=== PATIENT | female | born 1965 | race Caucasian/White ===

== ENCOUNTER 2019-06-24 15:38 | Inpatient (IN) | payer OTHER ==
[2019-06-24] MEDS: predniSONE 20 MG TAB PO (15:57)
[2019-06-24] MEDS: IPRATROPIUM (NEB) 0.5 MG/2.5 ML AMP INH (16:22)
[2019-06-24] MEDS: ALBUTEROL 0.083% (NEB) 2.5 MG/3 ML AMP INH (16:22)
[2019-06-24] MEDS: SODIUM CHLORIDE 0.9% 1L BAG IV* ×2 (18:05)
[2019-06-24] MEDS: CEFEPIME 2GM/50 ML (PMX) 50 ML IVPB (18:17)
[2019-06-24] MEDS ORDERED: ACETAMINOPHEN 325 MG TAB PO (19:00)
[2019-06-24] MEDS ORDERED: ONDANSETRON 4 MG INJ IV ×2 (19:00)
[2019-06-24] MEDS ORDERED: NACL 0.9% 3 ML SYG IV (19:00)
[2019-06-24] MEDS: VANCOMYCIN 1 GM (PMX) 250 ML IVPB (19:06)
[2019-06-24] MEDS: SOD CHLORIDE 0.9% 1,000 ML IV (19:06)
[2019-06-24] MEDS ORDERED: CEFEPIME 1GM/50 ML (PMX) 50 ML IVPB (21:00)
[2019-06-24] MEDS: FAMOTIDINE 20 MG TAB PO (23:02)
[2019-06-25] MEDS ORDERED: PENDING SANTYL ORDER FOR WOUND CARE XX (01:00)
[2019-06-25] MEDS: SOD CHLORIDE 0.9% 1,000 ML IV (03:43)
[2019-06-25] MEDS: CEFEPIME 1GM/50 ML (PMX) 50 ML IVPB ×2 (06:09→20:10)
[2019-06-25] MEDS: FAMOTIDINE 20 MG TAB PO ×2 (09:00→20:10)
[2019-06-25] MEDS: ALBUTEROL 0.083% (NEB) 2.5 MG/3 ML AMP HHN (09:08)
[2019-06-25] MEDS: METHYLPREDNISOLONE 125 MG INJ IV (09:32)
[2019-06-25] MEDS: ENOXAPARIN 30 MG/0.3 ML SYG SC (09:33)
[2019-06-25] MEDS: FUROSEMIDE 40 MG INJ IV (10:49)
[2019-06-25] MEDS: SOD CHLORIDE 0.9% 250 ML IV* (14:10)
[2019-06-26] MEDS: ALBUTEROL 0.083% (NEB) 2.5 MG/3 ML AMP HHN ×2 (00:26→08:45)
[2019-06-26] MEDS: CEFEPIME 1GM/50 ML (PMX) 50 ML IVPB ×2 (08:40→21:14)
[2019-06-26] MEDS: FAMOTIDINE 20 MG TAB PO ×2 (08:40→21:14)
[2019-06-26] MEDS: METHYLPREDNISOLONE 125 MG INJ IV (08:40)
[2019-06-26] MEDS: ENOXAPARIN 30 MG/0.3 ML SYG SC (09:21)
[2019-06-26] MEDS ORDERED: VANCOMYCIN IV PER PHARMACY XX (18:30)
[2019-06-26] MEDS: ALBUTEROL/IPRATROPIUM (NEB) 3 ML AMP HHN (20:13)
[2019-06-26] MEDS: VANCOMYCIN 1.5 GM/NS 250 ML 250 ML IVPB (20:20)
[2019-06-26] MEDS: SILVER SULFADIAZINE 1% 25 GM CR TOP (22:43)
[2019-06-26] MEDS: COLLAGENASE 5 GM (UD JAR) TOP (22:43)
[2019-06-27] MEDS: GENTAMICIN 60 MG in SOD CHLORIDE 0.9% 50 ML IVPB ×2 (02:15→22:29)
[2019-06-27] MEDS: COLLAGENASE 5 GM (UD JAR) TOP (09:08)
[2019-06-27] MEDS: ENOXAPARIN 30 MG/0.3 ML SYG SC (09:08)
[2019-06-27] MEDS: SILVER SULFADIAZINE 1% 25 GM CR TOP (09:09)
[2019-06-27] MEDS: ALBUTEROL/IPRATROPIUM (NEB) 3 ML AMP HHN ×3 (10:00→20:08)
[2019-06-27] MEDS ORDERED: FUROSEMIDE 20 MG INJ (12:00)
[2019-06-27] MEDS ORDERED: GENTAMICIN IV PER PHARMACY XX (16:00)
[2019-06-27] MEDS ORDERED: FUROSEMIDE 40 MG INJ IM (16:30)
[2019-06-27] MEDS: ALBUTEROL 0.083% (NEB) 2.5 MG/3 ML AMP HHN (16:43)
[2019-06-27] MEDS: METHYLPREDNISOLONE 125 MG INJ IV (16:44)
[2019-06-27] MEDS: CEFEPIME 1GM/50 ML (PMX) 50 ML IVPB ×2 (16:56→22:27)
[2019-06-27] MEDS: FUROSEMIDE 40 MG INJ IV (17:00)
[2019-06-27] MEDS: PEG/ELECTROLYTES 4L BTL PO ×3 (17:00→22:28)
[2019-06-27] MEDS: VANCOMYCIN 750 MG (PMX) 250 ML IVPB (17:36)
[2019-06-27] MEDS: PANTOPRAZOLE 40 MG INJ IV (17:38)
[2019-06-27] MEDS: BISACODYL (EC) 5 MG TAB PO ×2 (17:38→22:27)
[2019-06-27] MEDS ORDERED: METHADONE (1 MG/ML 5 ML PO UD SYG) PO (18:30)
[2019-06-27] MEDS: NICOTINE (21 MG/24 HR) PATCH TRANSDERM (19:21)
[2019-06-27] MEDS: morphine 2 MG INJ IV (19:21)
[2019-06-27] MEDS ORDERED: VANCOMYCIN 1 GM 250 ML IVPB (20:00)
[2019-06-28] MEDS: GENTAMICIN 60 MG in SOD CHLORIDE 0.9% 50 ML IVPB ×4 (02:15→15:37)
[2019-06-28] MEDS: VANCOMYCIN 750 MG (PMX) 250 ML IVPB ×2 (04:16→17:22)
[2019-06-28] MEDS: PANTOPRAZOLE 40 MG INJ IV ×2 (06:03→17:20)
[2019-06-28] MEDS: ENOXAPARIN 30 MG/0.3 ML SYG SC (09:00)
[2019-06-28] MEDS: METHYLPREDNISOLONE 125 MG INJ IV (10:12)
[2019-06-28] MEDS: morphine 2 MG INJ IV (10:12)
[2019-06-28] MEDS: ALBUTEROL/IPRATROPIUM (NEB) 3 ML AMP HHN ×3 (10:12→20:00)
[2019-06-28] MEDS: SILVER SULFADIAZINE 1% 25 GM CR TOP (10:17)
[2019-06-28] MEDS: COLLAGENASE 5 GM (UD JAR) TOP (10:17)
[2019-06-28] MEDS: NICOTINE (21 MG/24 HR) PATCH TRANSDERM (10:17)
[2019-06-28] MEDS: CEFEPIME 1GM/50 ML (PMX) 50 ML IVPB ×2 (10:44→20:18)
[2019-06-28] MEDS ORDERED: ONDANSETRON 4 MG INJ IV (13:30)
[2019-06-28] MEDS: METHADONE 1 MG/ML (ORAL SOLN) PO (17:14)
[2019-06-28] MEDS: ALBUTEROL 0.083% (NEB) 2.5 MG/3 ML AMP HHN (19:29)
[2019-06-28] MEDS ORDERED: GENTAMICIN 60 MG in SOD CHLORIDE 0.9% 50 ML IVPB (22:00)
[2019-06-29] MEDS: GENTAMICIN 60 MG in SOD CHLORIDE 0.9% 50 ML IVPB ×2 (01:17→14:22)
[2019-06-29] MEDS: VANCOMYCIN 750 MG (PMX) 250 ML IVPB ×2 (03:22→15:56)
[2019-06-29] MEDS: ALBUTEROL 0.083% (NEB) 2.5 MG/3 ML AMP HHN ×2 (03:33→12:04)
[2019-06-29] MEDS ORDERED: FUROSEMIDE 20 MG INJ (03:52)
[2019-06-29] MEDS: FUROSEMIDE 20 MG INJ IV (04:09)
[2019-06-29] MEDS: PANTOPRAZOLE 40 MG INJ IV ×2 (06:05→17:57)
[2019-06-29] MEDS: ALBUTEROL/IPRATROPIUM (NEB) 3 ML AMP HHN ×3 (08:01→19:58)
[2019-06-29] MEDS: METHYLPREDNISOLONE 125 MG INJ IV (09:50)
[2019-06-29] MEDS: NICOTINE (21 MG/24 HR) PATCH TRANSDERM (09:50)
[2019-06-29] MEDS: CEFEPIME 1GM/50 ML (PMX) 50 ML IVPB ×2 (09:50→20:23)
[2019-06-29] MEDS: LISINOPRIL 5 MG TAB PO (09:51)
[2019-06-29] MEDS: METOPROLOL (XL) 25 MG TAB PO ×3 (09:53→20:23)
[2019-06-29] MEDS: COLLAGENASE 5 GM (UD JAR) TOP (09:53)
[2019-06-29] MEDS: ENOXAPARIN 30 MG/0.3 ML SYG SC (10:02)
[2019-06-29] MEDS: SILVER SULFADIAZINE 1% 25 GM CR TOP (11:22)
[2019-06-29] MEDS: METHADONE 1 MG/ML (ORAL SOLN) PO (11:23)
[2019-06-30] MEDS: GENTAMICIN 60 MG in SOD CHLORIDE 0.9% 50 ML IVPB (01:18)
[2019-06-30] MEDS: ALBUTEROL 0.083% (NEB) 2.5 MG/3 ML AMP HHN (01:25)
[2019-06-30] MEDS: VANCOMYCIN 750 MG (PMX) 250 ML IVPB (03:23)
[2019-06-30] MEDS: PANTOPRAZOLE 40 MG INJ IV ×2 (05:04→17:37)
[2019-06-30] MEDS: ALBUTEROL/IPRATROPIUM (NEB) 3 ML AMP HHN ×3 (07:46→19:49)
[2019-06-30] MEDS: SILVER SULFADIAZINE 1% 25 GM CR TOP (08:50)
[2019-06-30] MEDS: CEFEPIME 1GM/50 ML (PMX) 50 ML IVPB ×2 (08:50→21:54)
[2019-06-30] MEDS: NICOTINE (21 MG/24 HR) PATCH TRANSDERM (08:51)
[2019-06-30] MEDS: METHYLPREDNISOLONE 125 MG INJ IV (08:51)
[2019-06-30] MEDS: COLLAGENASE 5 GM (UD JAR) TOP (08:51)
[2019-06-30] MEDS: METOPROLOL (XL) 25 MG TAB PO ×2 (08:52→21:00)
[2019-06-30] MEDS: LISINOPRIL 5 MG TAB PO (08:53)
[2019-06-30] MEDS: ENOXAPARIN 30 MG/0.3 ML SYG SC (08:59)
[2019-06-30] MEDS: METHADONE 1 MG/ML (ORAL SOLN) PO (10:25)
[2019-06-30] MEDS: VANCOMYCIN 500 MG (PMX) 100 ML IVPB (17:37)
[2019-07-01] MEDS: PANTOPRAZOLE 40 MG INJ IV ×2 (06:00→17:17)
[2019-07-01] MEDS: VANCOMYCIN 500 MG (PMX) 100 ML IVPB ×2 (06:00→18:00)
[2019-07-01] MEDS: ALBUTEROL/IPRATROPIUM (NEB) 3 ML AMP HHN ×3 (08:30→20:38)
[2019-07-01] MEDS: CEFEPIME 1GM/50 ML (PMX) 50 ML IVPB ×2 (09:00→21:00)
[2019-07-01] MEDS: LISINOPRIL 5 MG TAB PO (09:00)
[2019-07-01] MEDS: METOPROLOL (XL) 25 MG TAB PO ×2 (09:00→21:00)
[2019-07-01] MEDS: METHYLPREDNISOLONE 125 MG INJ IV (09:00)
[2019-07-01] MEDS: COLLAGENASE 5 GM (UD JAR) TOP (09:21)
[2019-07-01] MEDS: SILVER SULFADIAZINE 1% 25 GM CR TOP (09:22)
[2019-07-01] MEDS: NICOTINE (21 MG/24 HR) PATCH TRANSDERM (09:37)
[2019-07-01] MEDS: ENOXAPARIN 30 MG/0.3 ML SYG SC (09:39)
[2019-07-01] MEDS ORDERED: NA POLYST SULFON 15 GM/60 ML BTL PO (11:00)
[2019-07-01] MEDS ORDERED: GENTAMICIN 60 MG in SOD CHLORIDE 0.9% 50 ML IVPB (12:00)
[2019-07-01] MEDS: METHADONE 1 MG/ML (ORAL SOLN) PO (13:25)
[2019-07-01] MEDS: NA POLYST SULFON 15 GM/60 ML BTL PO (13:55)
[2019-07-01] MEDS: ENOXAPARIN 80 MG/0.8 ML SYG SC (21:09)
[2019-07-02] MEDS: PANTOPRAZOLE 40 MG INJ IV ×2 (05:42→18:27)
[2019-07-02] MEDS: VANCOMYCIN 500 MG (PMX) 100 ML IVPB (05:42)
[2019-07-02] MEDS: CEFEPIME 1GM/50 ML (PMX) 50 ML IVPB (08:55)
[2019-07-02] MEDS: METOPROLOL (XL) 25 MG TAB PO ×2 (08:55→21:00)
[2019-07-02] MEDS: NICOTINE (21 MG/24 HR) PATCH TRANSDERM (08:55)
[2019-07-02] MEDS: COLLAGENASE 5 GM (UD JAR) TOP (08:55)
[2019-07-02] MEDS: METHYLPREDNISOLONE 125 MG INJ IV (08:56)
[2019-07-02] MEDS: LISINOPRIL 5 MG TAB PO (08:56)
[2019-07-02] MEDS: SILVER SULFADIAZINE 1% 25 GM CR TOP (08:57)
[2019-07-02] MEDS: ALBUTEROL/IPRATROPIUM (NEB) 3 ML AMP HHN ×3 (09:00→20:50)
[2019-07-02] MEDS: ENOXAPARIN 80 MG/0.8 ML SYG SC ×2 (09:15→20:31)
[2019-07-02] MEDS: LIDOCAINE 2% (SDV) 5 ML INJ (09:40)
[2019-07-02] MEDS: PROPOFOL 20 ML ×2 (09:40→09:41)
[2019-07-02] MEDS: METHADONE 10 MG TAB PO (09:40)
[2019-07-02] MEDS: FENTAnyl 50 MCG/ML VIAL (09:41)
[2019-07-02] MEDS: CEFTRIAXONE 1 GM/50 ML (PMX) 50 ML IVPB (18:27)
[2019-07-03] MEDS: PANTOPRAZOLE 40 MG INJ IV ×2 (05:02→18:20)
[2019-07-03] MEDS: ALBUTEROL/IPRATROPIUM (NEB) 3 ML AMP HHN ×3 (07:38→19:31)
[2019-07-03] MEDS: NICOTINE (21 MG/24 HR) PATCH TRANSDERM (08:38)
[2019-07-03] MEDS: COLLAGENASE 5 GM (UD JAR) TOP (08:39)
[2019-07-03] MEDS: METHYLPREDNISOLONE 125 MG INJ IV (08:39)
[2019-07-03] MEDS: METOPROLOL (XL) 25 MG TAB PO ×2 (08:40→20:35)
[2019-07-03] MEDS: METHADONE 10 MG TAB PO (08:40)
[2019-07-03] MEDS: SILVER SULFADIAZINE 1% 25 GM CR TOP (08:41)
[2019-07-03] MEDS: ENOXAPARIN 80 MG/0.8 ML SYG SC ×2 (08:51→20:18)
[2019-07-03] MEDS: CEFTRIAXONE 1 GM/50 ML (PMX) 50 ML IVPB (18:20)
[2019-07-04] MEDS: PANTOPRAZOLE 40 MG INJ IV ×2 (05:05→17:53)
[2019-07-04] MEDS: ALBUTEROL/IPRATROPIUM (NEB) 3 ML AMP HHN ×3 (08:31→21:08)
[2019-07-04] MEDS: METOPROLOL (XL) 25 MG TAB PO ×2 (09:00→21:17)
[2019-07-04] MEDS: METHYLPREDNISOLONE 125 MG INJ IV (09:29)
[2019-07-04] MEDS: METHADONE 10 MG TAB PO (09:29)
[2019-07-04] MEDS: NICOTINE (21 MG/24 HR) PATCH TRANSDERM (09:31)
[2019-07-04] MEDS: COLLAGENASE 5 GM (UD JAR) TOP (09:32)
[2019-07-04] MEDS: ENOXAPARIN 80 MG/0.8 ML SYG SC ×2 (11:03→21:39)
[2019-07-04] MEDS: SOD FERRIC GLUC COMPLX 125 MG in SOD CHLORIDE 0.9% 100 ML IVPB (13:21)
[2019-07-04] MEDS: CEFTRIAXONE 1 GM/50 ML (PMX) 50 ML IVPB (17:53)
[2019-07-04] MEDS: SILVER SULFADIAZINE 1% 25 GM CR TOP (17:54)
[2019-07-05] MEDS: 1/2 NS + KCL 20 MEQ 1,000 ML IV ×2 (02:42→17:05)
[2019-07-05] MEDS: ALBUTEROL 0.083% (NEB) 2.5 MG/3 ML AMP HHN (03:06)
[2019-07-05] MEDS: PANTOPRAZOLE 40 MG INJ IV ×2 (06:18→17:04)
[2019-07-05] MEDS: METHADONE 10 MG TAB PO (08:54)
[2019-07-05] MEDS: METHYLPREDNISOLONE 40 MG INJ IV (08:55)
[2019-07-05] MEDS: NICOTINE (21 MG/24 HR) PATCH TRANSDERM (08:55)
[2019-07-05] MEDS: COLLAGENASE 5 GM (UD JAR) TOP (08:56)
[2019-07-05] MEDS: SILVER SULFADIAZINE 1% 25 GM CR TOP (08:56)
[2019-07-05] MEDS: METOPROLOL (XL) 25 MG TAB PO ×2 (08:56→21:00)
[2019-07-05] MEDS: ENOXAPARIN 80 MG/0.8 ML SYG SC (09:09)
[2019-07-05] MEDS: ALBUTEROL/IPRATROPIUM (NEB) 3 ML AMP HHN ×3 (10:30→20:54)
[2019-07-05] MEDS: SOD FERRIC GLUC COMPLX 125 MG in SOD CHLORIDE 0.9% 100 ML IVPB (13:15)
[2019-07-05] MEDS: CEFTRIAXONE 1 GM/50 ML (PMX) 50 ML IVPB (15:44)
[2019-07-05] MEDS: PHYTONADIONE (1 MG/ML PO SYG) PO (19:04)
[2019-07-06] MEDS: ENOXAPARIN 80 MG/0.8 ML SYG SC ×2 (00:35→10:05)
[2019-07-06] MEDS: ALBUTEROL 0.083% (NEB) 2.5 MG/3 ML AMP HHN (01:16)
[2019-07-06] MEDS: 1/2 NS + KCL 20 MEQ 1,000 ML IV ×2 (06:01→10:12)
[2019-07-06] MEDS: PANTOPRAZOLE 40 MG INJ IV ×2 (06:01→17:59)
[2019-07-06] MEDS: METOPROLOL (XL) 25 MG TAB PO ×2 (09:00→21:56)
[2019-07-06] MEDS: ALBUTEROL/IPRATROPIUM (NEB) 3 ML AMP HHN ×3 (09:48→19:57)
[2019-07-06] MEDS: METHADONE 10 MG TAB PO (10:00)
[2019-07-06] MEDS: COLLAGENASE 5 GM (UD JAR) TOP (10:01)
[2019-07-06] MEDS: METHYLPREDNISOLONE 40 MG INJ IV (10:01)
[2019-07-06] MEDS: SILVER SULFADIAZINE 1% 25 GM CR TOP (10:01)
[2019-07-06] MEDS: NICOTINE (21 MG/24 HR) PATCH TRANSDERM (10:01)
[2019-07-06] MEDS: PHYTONADIONE (1 MG/ML PO SYG) PO (10:11)
[2019-07-06] MEDS: SOD FERRIC GLUC COMPLX 125 MG in SOD CHLORIDE 0.9% 100 ML IVPB (13:38)
[2019-07-06] MEDS: CEFTRIAXONE 1 GM/50 ML (PMX) 50 ML IVPB (16:46)
[2019-07-07] MEDS: 1/2 NS + KCL 20 MEQ 1,000 ML IV (01:48)
[2019-07-07] MEDS ORDERED: DEXTROSE 50% 50 ML SYRINGE (04:09)
[2019-07-07] MEDS ORDERED: GLUCOSE GEL 15 GRAM TUBE (04:12)
[2019-07-07] MEDS ORDERED: GLUCAGON 1 MG INJ (04:13)
[2019-07-07] MEDS ORDERED: NA BICARBONATE 8.4% 50 ML SYG (05:06)
[2019-07-07] MEDS: NA BICARBONATE 8.4% 50 ML SYG IV ×2 (05:09→10:05)
[2019-07-07] MEDS: PANTOPRAZOLE 40 MG INJ IV ×2 (06:19→17:37)
[2019-07-07] MEDS: DEXTROSE 5%-0.45% NACL 1,000 ML IV (06:19)
[2019-07-07] MEDS: ALBUTEROL/IPRATROPIUM (NEB) 3 ML AMP HHN ×3 (07:09→19:19)
[2019-07-07] MEDS: SOD CHLORIDE 0.9% 2,100 ML IV (08:32)
[2019-07-07] MEDS: METHADONE 10 MG TAB PO (08:35)
[2019-07-07] MEDS: METOPROLOL (XL) 25 MG TAB PO ×2 (08:35→20:00)
[2019-07-07] MEDS: SILVER SULFADIAZINE 1% 25 GM CR TOP (08:35)
[2019-07-07] MEDS: PHYTONADIONE (1 MG/ML PO SYG) PO (08:36)
[2019-07-07] MEDS: METHYLPREDNISOLONE 40 MG INJ IV (09:02)
[2019-07-07] MEDS: NICOTINE (21 MG/24 HR) PATCH TRANSDERM (09:03)
[2019-07-07] MEDS: COLLAGENASE 5 GM (UD JAR) TOP (09:48)
[2019-07-07] MEDS: ENOXAPARIN 80 MG/0.8 ML SYG SC (09:50)
[2019-07-07] MEDS ORDERED: NORepinephrine 8MG/250 ML (PMX 250 ML (10:07)
[2019-07-07] MEDS: NORepinephrine 8MG/250 ML (PMX 250 ML IV (10:37)
[2019-07-07] MEDS ORDERED: VANCOMYCIN IV PER PHARMACY XX (12:00)
[2019-07-07] MEDS: SODIUM BICARBONATE (IV ADD) 100 MEQ in DEXTROSE 5%-0.45% NACL 1,000 ML IV (12:11)
[2019-07-07] MEDS: SOD FERRIC GLUC COMPLX 125 MG in SOD CHLORIDE 0.9% 100 ML IVPB (12:11)
[2019-07-07] MEDS: MEROPENEM 500MG/50 ML (PMX) 50 ML IVPB ×2 (12:11→20:13)
[2019-07-07] MEDS: VANCOMYCIN 1.5 GM/NS 250 ML 250 ML IVPB (13:16)
[2019-07-07] MEDS ORDERED: SODIUM BICARBONATE (IV ADD) 150 MEQ in DEXTROSE 5% 1,000 ML IV (17:00)
[2019-07-07] MEDS: FUROSEMIDE 40 MG INJ IM (17:36)
[2019-07-07] MEDS: SODIUM BICARBONATE IN D5W 1,000 ML IV (18:50)
[2019-07-08] MEDS: ALBUTEROL/IPRATROPIUM (NEB) 3 ML AMP HHN ×4 (00:51→19:43)
[2019-07-08] MEDS ORDERED: FUROSEMIDE 40 MG INJ (01:34)
[2019-07-08] MEDS: FUROSEMIDE 40 MG INJ IV (01:45)
[2019-07-08] MEDS: PANTOPRAZOLE 40 MG INJ IV ×2 (05:02→17:43)
[2019-07-08] MEDS: SODIUM BICARBONATE IN D5W 1,000 ML IV ×2 (05:02→13:32)
[2019-07-08] MEDS: METOPROLOL (XL) 25 MG TAB PO ×2 (09:00→21:00)
[2019-07-08] MEDS: METHADONE 10 MG TAB PO ×2 (09:00→14:55)
[2019-07-08] MEDS: MEROPENEM 500MG/50 ML (PMX) 50 ML IVPB ×2 (09:13→21:34)
[2019-07-08] MEDS: SILVER SULFADIAZINE 1% 25 GM CR TOP (09:14)
[2019-07-08] MEDS: METHYLPREDNISOLONE 40 MG INJ IV (09:14)
[2019-07-08] MEDS: NICOTINE (21 MG/24 HR) PATCH TRANSDERM (09:14)
[2019-07-08] MEDS: COLLAGENASE 5 GM (UD JAR) TOP (09:14)
[2019-07-08] MEDS: FUROSEMIDE 20 MG INJ IV (11:23)
[2019-07-08] MEDS: SOD FERRIC GLUC COMPLX 125 MG in SOD CHLORIDE 0.9% 100 ML IVPB (13:30)
[2019-07-09] MEDS: SODIUM BICARBONATE IN D5W 1,000 ML IV ×3 (00:16→20:01)
[2019-07-09] MEDS: ALBUTEROL/IPRATROPIUM (NEB) 3 ML AMP HHN ×4 (02:02→19:28)
[2019-07-09] MEDS: PANTOPRAZOLE 40 MG INJ IV ×2 (06:30→17:11)
[2019-07-09] MEDS: MEROPENEM 500MG/50 ML (PMX) 50 ML IVPB ×2 (09:02→20:17)
[2019-07-09] MEDS: METHYLPREDNISOLONE 40 MG INJ IV (09:02)
[2019-07-09] MEDS: METHADONE 10 MG TAB PO (09:03)
[2019-07-09] MEDS: COLLAGENASE 5 GM (UD JAR) TOP (09:03)
[2019-07-09] MEDS: METOPROLOL (XL) 25 MG TAB PO ×2 (09:04→20:10)
[2019-07-09] MEDS: NICOTINE (21 MG/24 HR) PATCH TRANSDERM (09:04)
[2019-07-09] MEDS: SILVER SULFADIAZINE 1% 25 GM CR TOP (09:07)
[2019-07-09] MEDS ORDERED: VANCOMYCIN 1 GM 250 ML IVPB (13:00)
[2019-07-09] MEDS ORDERED: SODIUM BICARBONATE IN D5W 1,000 ML IV (23:30)
[2019-07-10] MEDS: ALBUTEROL/IPRATROPIUM (NEB) 3 ML AMP HHN ×4 (02:07→20:22)
[2019-07-10] MEDS: PANTOPRAZOLE 40 MG INJ IV ×2 (05:56→18:04)
[2019-07-10] MEDS: SODIUM BICARBONATE IN D5W 1,000 ML IV (05:57)
[2019-07-10] MEDS: COLLAGENASE 5 GM (UD JAR) TOP (10:13)
[2019-07-10] MEDS: NICOTINE (21 MG/24 HR) PATCH TRANSDERM (10:14)
[2019-07-10] MEDS: FUROSEMIDE 40 MG INJ IV (10:14)
[2019-07-10] MEDS: POLYETHYLENE GLYCOL 17 GM PACKET PO (10:14)
[2019-07-10] MEDS: LUBIPROSTONE 24 MCG CAP PO ×2 (10:15→21:34)
[2019-07-10] MEDS: MEROPENEM 500MG/50 ML (PMX) 50 ML IVPB ×2 (10:16→21:33)
[2019-07-10] MEDS: METOPROLOL (XL) 25 MG TAB PO ×2 (10:16→21:00)
[2019-07-10] MEDS: VANCOMYCIN 1 GM 250 ML IVPB (10:17)
[2019-07-10] MEDS: METHYLPREDNISOLONE 40 MG INJ IV (10:25)
[2019-07-10] MEDS: SILVER SULFADIAZINE 1% 25 GM CR TOP (10:25)
[2019-07-10] MEDS: METHADONE 10 MG TAB PO (11:47)
[2019-07-10] MEDS ORDERED: SODIUM BICARBONATE IN D5W 1,000 ML IV (16:00)
[2019-07-10] MEDS ORDERED: SODIUM BICARBONATE (IV ADD) 150 MEQ in DEXTROSE 5% 850 ML IV (16:00)
[2019-07-10] MEDS: morphine 2 MG INJ IV (21:51)
[2019-07-11] MEDS: ALBUTEROL/IPRATROPIUM (NEB) 3 ML AMP HHN ×4 (01:57→19:59)
[2019-07-11] MEDS: PANTOPRAZOLE 40 MG INJ IV ×2 (05:29→18:21)
[2019-07-11] MEDS: POLYETHYLENE GLYCOL 17 GM PACKET PO (09:17)
[2019-07-11] MEDS: COLLAGENASE 5 GM (UD JAR) TOP (09:18)
[2019-07-11] MEDS: NICOTINE (21 MG/24 HR) PATCH TRANSDERM (09:18)
[2019-07-11] MEDS: METHADONE 10 MG TAB PO (09:19)
[2019-07-11] MEDS: MEROPENEM 500MG/50 ML (PMX) 50 ML IVPB ×2 (09:20→20:57)
[2019-07-11] MEDS: METHYLPREDNISOLONE 40 MG INJ IV (09:20)
[2019-07-11] MEDS: METOPROLOL (XL) 25 MG TAB PO ×2 (09:20→21:01)
[2019-07-11] MEDS: FUROSEMIDE 40 MG INJ IV ×2 (09:26→18:21)
[2019-07-11] MEDS: SILVER SULFADIAZINE 1% 25 GM CR TOP (11:02)
[2019-07-11] MEDS: LUBIPROSTONE 24 MCG CAP PO ×2 (11:02→20:58)
[2019-07-11] MEDS: LIDOCAINE 1% (MPF) 5 ML VIAL (15:50)
[2019-07-12] MEDS: ALBUTEROL/IPRATROPIUM (NEB) 3 ML AMP HHN ×4 (01:55→19:36)
[2019-07-12] MEDS: PANTOPRAZOLE 40 MG INJ IV ×2 (05:56→17:38)
[2019-07-12] MEDS: FUROSEMIDE 40 MG INJ IV ×2 (05:56→17:38)
[2019-07-12] MEDS: LUBIPROSTONE 24 MCG CAP PO ×2 (09:50→21:56)
[2019-07-12] MEDS: POLYETHYLENE GLYCOL 17 GM PACKET PO (10:11)
[2019-07-12] MEDS: MEROPENEM 500MG/50 ML (PMX) 50 ML IVPB ×2 (10:11→21:55)
[2019-07-12] MEDS: COLLAGENASE 5 GM (UD JAR) TOP (10:11)
[2019-07-12] MEDS: METHYLPREDNISOLONE 40 MG INJ IV (10:11)
[2019-07-12] MEDS: METOPROLOL (XL) 25 MG TAB PO ×2 (10:12→21:00)
[2019-07-12] MEDS: NICOTINE (21 MG/24 HR) PATCH TRANSDERM (10:13)
[2019-07-12] MEDS: SILVER SULFADIAZINE 1% 25 GM CR TOP (10:13)
[2019-07-12] MEDS: METHADONE 10 MG TAB PO (10:56)
[2019-07-13] MEDS: ALBUTEROL/IPRATROPIUM (NEB) 3 ML AMP HHN ×4 (01:18→19:54)
[2019-07-13] MEDS: PANTOPRAZOLE 40 MG INJ IV ×2 (06:22→17:14)
[2019-07-13] MEDS: FUROSEMIDE 40 MG INJ IV ×2 (06:23→17:14)
[2019-07-13] MEDS: LUBIPROSTONE 24 MCG CAP PO ×2 (08:13→21:17)
[2019-07-13] MEDS: METHADONE 10 MG TAB PO (08:13)
[2019-07-13] MEDS: METOPROLOL (XL) 25 MG TAB PO ×2 (08:14→21:17)
[2019-07-13] MEDS: METHYLPREDNISOLONE 40 MG INJ IV (08:15)
[2019-07-13] MEDS: MEROPENEM 500MG/50 ML (PMX) 50 ML IVPB (08:15)
[2019-07-13] MEDS: POLYETHYLENE GLYCOL 17 GM PACKET PO (08:17)
[2019-07-13] MEDS: COLLAGENASE 5 GM (UD JAR) TOP (08:18)
[2019-07-13] MEDS: NICOTINE (21 MG/24 HR) PATCH TRANSDERM (08:18)
[2019-07-13] MEDS: SILVER SULFADIAZINE 1% 25 GM CR TOP (08:22)
[2019-07-13] MEDS: CEFEPIME 1GM/50 ML (PMX) 50 ML IVPB (21:46)
[2019-07-14] MEDS: ALBUTEROL/IPRATROPIUM (NEB) 3 ML AMP HHN ×4 (01:32→20:55)
[2019-07-14] MEDS: PANTOPRAZOLE 40 MG INJ IV ×2 (06:13→18:18)
[2019-07-14] MEDS: FUROSEMIDE 40 MG INJ IV ×2 (06:29→18:28)
[2019-07-14] MEDS: METOPROLOL (XL) 25 MG TAB PO ×2 (09:00→21:00)
[2019-07-14] MEDS: POTASSIUM CHLORIDE (SR) 20 MEQ TAB PO (09:41)
[2019-07-14] MEDS: LUBIPROSTONE 24 MCG CAP PO ×2 (09:41→21:11)
[2019-07-14] MEDS: METHADONE 10 MG TAB PO (09:41)
[2019-07-14] MEDS: COLLAGENASE 5 GM (UD JAR) TOP (09:42)
[2019-07-14] MEDS: MAGNESIUM SULFATE 2 GM/50 ML 50 ML IVPB (09:43)
[2019-07-14] MEDS: SILVER SULFADIAZINE 1% 25 GM CR TOP (09:43)
[2019-07-14] MEDS: POLYETHYLENE GLYCOL 17 GM PACKET PO (09:43)
[2019-07-14] MEDS: METHYLPREDNISOLONE 40 MG INJ IV (09:43)
[2019-07-14] MEDS: NICOTINE (21 MG/24 HR) PATCH TRANSDERM (09:44)
[2019-07-14] MEDS ORDERED: metroNIDAZOLE 500 MG TAB PO (14:00)
[2019-07-14] MEDS ORDERED: VANCOMYCIN 1 GM 250 ML IVPB (16:00)
[2019-07-14] MEDS: CEFEPIME 1GM/50 ML (PMX) 50 ML IVPB (21:11)
[2019-07-15] MEDS: ALBUTEROL/IPRATROPIUM (NEB) 3 ML AMP HHN ×4 (02:11→19:54)
[2019-07-15] MEDS: FUROSEMIDE 40 MG INJ IV ×3 (05:34→17:30)
[2019-07-15] MEDS: PANTOPRAZOLE 40 MG INJ IV ×2 (05:35→17:31)
[2019-07-15] MEDS: SILVER SULFADIAZINE 1% 25 GM CR TOP (09:00)
[2019-07-15] MEDS: METOPROLOL (XL) 25 MG TAB PO ×2 (09:00→21:01)
[2019-07-15] MEDS: POLYETHYLENE GLYCOL 17 GM PACKET PO (09:13)
[2019-07-15] MEDS: LUBIPROSTONE 24 MCG CAP PO ×2 (09:14→20:59)
[2019-07-15] MEDS: COLLAGENASE 5 GM (UD JAR) TOP (09:14)
[2019-07-15] MEDS: METHYLPREDNISOLONE 40 MG INJ IV (09:14)
[2019-07-15] MEDS: NICOTINE (21 MG/24 HR) PATCH TRANSDERM (09:15)
[2019-07-15] MEDS: METHADONE 10 MG TAB PO (09:22)
[2019-07-15] MEDS: POTASSIUM CHLORIDE (SR) 20 MEQ TAB PO (17:30)
[2019-07-15] MEDS: CEFEPIME 1GM/50 ML (PMX) 50 ML IVPB (20:59)
[2019-07-16] MEDS: ALBUTEROL/IPRATROPIUM (NEB) 3 ML AMP HHN ×4 (01:15→19:55)
[2019-07-16] MEDS: PANTOPRAZOLE 40 MG INJ IV ×2 (05:51→17:29)
[2019-07-16] MEDS: FUROSEMIDE 40 MG INJ IV ×2 (05:52→17:30)
[2019-07-16] MEDS: LUBIPROSTONE 24 MCG CAP PO ×2 (09:00→22:01)
[2019-07-16] MEDS: COLLAGENASE 5 GM (UD JAR) TOP (09:00)
[2019-07-16] MEDS: METHADONE 10 MG TAB PO (09:00)
[2019-07-16] MEDS: METOPROLOL (XL) 25 MG TAB PO ×2 (09:00→22:02)
[2019-07-16] MEDS: SILVER SULFADIAZINE 1% 25 GM CR TOP (09:00)
[2019-07-16] MEDS: POLYETHYLENE GLYCOL 17 GM PACKET PO (09:00)
[2019-07-16] MEDS: METHYLPREDNISOLONE 40 MG INJ IV (09:45)
[2019-07-16] MEDS: NICOTINE (21 MG/24 HR) PATCH TRANSDERM (09:56)
[2019-07-16] MEDS: CEFEPIME 1GM/50 ML (PMX) 50 ML IVPB (22:02)
[2019-07-17] MEDS: ALBUTEROL/IPRATROPIUM (NEB) 3 ML AMP HHN ×4 (02:42→19:46)
[2019-07-17] MEDS: PANTOPRAZOLE 40 MG INJ IV ×2 (05:40→17:17)
[2019-07-17] MEDS: FUROSEMIDE 40 MG INJ IV ×2 (05:41→17:17)
[2019-07-17] MEDS: POLYETHYLENE GLYCOL 17 GM PACKET PO (08:37)
[2019-07-17] MEDS: COLLAGENASE 5 GM (UD JAR) TOP (08:37)
[2019-07-17] MEDS: NICOTINE (21 MG/24 HR) PATCH TRANSDERM (08:37)
[2019-07-17] MEDS: LUBIPROSTONE 24 MCG CAP PO ×2 (08:38→21:00)
[2019-07-17] MEDS: POTASSIUM CHLORIDE (SR) 20 MEQ TAB PO (08:38)
[2019-07-17] MEDS: METHYLPREDNISOLONE 40 MG INJ IV (08:38)
[2019-07-17] MEDS: METHADONE 10 MG TAB PO (08:38)
[2019-07-17] MEDS: METOPROLOL (XL) 25 MG TAB PO ×2 (08:39→20:15)
[2019-07-17] MEDS: SILVER SULFADIAZINE 1% 25 GM CR TOP (08:40)
[2019-07-17] MEDS: CEFEPIME 1GM/50 ML (PMX) 50 ML IVPB (20:15)
[2019-07-17] MEDS: ACETAMINOPHEN 325 MG TAB PO (20:22)
[2019-07-18] MEDS: ALBUTEROL/IPRATROPIUM (NEB) 3 ML AMP HHN ×4 (01:21→20:35)
[2019-07-18] MEDS: PANTOPRAZOLE 40 MG INJ IV ×2 (06:00→06:05)
[2019-07-18] MEDS: FUROSEMIDE 40 MG INJ IV ×2 (06:00→06:05)
[2019-07-18] MEDS: METHYLPREDNISOLONE 40 MG INJ IV (08:57)
[2019-07-18] MEDS: COLLAGENASE 5 GM (UD JAR) TOP (08:57)
[2019-07-18] MEDS: NICOTINE (21 MG/24 HR) PATCH TRANSDERM (08:57)
[2019-07-18] MEDS: METOPROLOL (XL) 25 MG TAB PO ×2 (08:58→20:44)
[2019-07-18] MEDS: METHADONE 10 MG TAB PO (08:59)
[2019-07-18] MEDS: POLYETHYLENE GLYCOL 17 GM PACKET PO (08:59)
[2019-07-18] MEDS: POTASSIUM CHLORIDE (SR) 20 MEQ TAB PO (08:59)
[2019-07-18] MEDS: LUBIPROSTONE 24 MCG CAP PO ×2 (09:00→20:39)
[2019-07-18] MEDS: SILVER SULFADIAZINE 1% 25 GM CR TOP (09:00)
[2019-07-18] MEDS: ACETAZOLAMIDE 500 MG INJ IV (10:23)
[2019-07-18] MEDS: PANTOPRAZOLE (EC) 40 MG TAB PO (18:18)
[2019-07-18] MEDS: CEFEPIME 1GM/50 ML (PMX) 50 ML IVPB (20:44)
[2019-07-19] MEDS: ALBUTEROL/IPRATROPIUM (NEB) 3 ML AMP HHN ×4 (01:23→19:56)
[2019-07-19] MEDS: PANTOPRAZOLE (EC) 40 MG TAB PO ×2 (05:43→16:44)
[2019-07-19] MEDS: METHYLPREDNISOLONE 40 MG INJ IV (08:19)
[2019-07-19] MEDS: NICOTINE (21 MG/24 HR) PATCH TRANSDERM (08:19)
[2019-07-19] MEDS: ACETAZOLAMIDE 500 MG INJ IV (08:19)
[2019-07-19] MEDS: POLYETHYLENE GLYCOL 17 GM PACKET PO (08:19)
[2019-07-19] MEDS: METHADONE 10 MG TAB PO (08:19)
[2019-07-19] MEDS: SILVER SULFADIAZINE 1% 25 GM CR TOP (08:20)
[2019-07-19] MEDS: LUBIPROSTONE 24 MCG CAP PO ×2 (08:20→20:08)
[2019-07-19] MEDS: COLLAGENASE 5 GM (UD JAR) TOP (08:20)
[2019-07-19] MEDS: METOPROLOL (XL) 25 MG TAB PO ×2 (08:20→20:09)
[2019-07-19] MEDS: POTASSIUM CHLORIDE (SR) 20 MEQ TAB PO (08:31)
[2019-07-19] MEDS: MAGNESIUM SULFATE 2 GM/50 ML 50 ML IVPB (08:32)
[2019-07-19] MEDS: CEFTRIAXONE 1 GM/50 ML (PMX) 50 ML IVPB (12:06)
[2019-07-20] MEDS: ALBUTEROL/IPRATROPIUM (NEB) 3 ML AMP HHN ×4 (01:22→19:30)
[2019-07-20] MEDS: PANTOPRAZOLE (EC) 40 MG TAB PO ×2 (05:51→18:03)
[2019-07-20] MEDS: METHYLPREDNISOLONE 40 MG INJ IV (08:03)
[2019-07-20] MEDS: LUBIPROSTONE 24 MCG CAP PO ×2 (08:04→21:48)
[2019-07-20] MEDS: METHADONE 10 MG TAB PO (08:04)
[2019-07-20] MEDS: POLYETHYLENE GLYCOL 17 GM PACKET PO (08:04)
[2019-07-20] MEDS: COLLAGENASE 5 GM (UD JAR) TOP (08:05)
[2019-07-20] MEDS: METOPROLOL (XL) 25 MG TAB PO ×2 (08:05→21:48)
[2019-07-20] MEDS: SILVER SULFADIAZINE 1% 25 GM CR TOP (08:06)
[2019-07-20] MEDS: NICOTINE (21 MG/24 HR) PATCH TRANSDERM (08:06)
[2019-07-20] MEDS: ACETAZOLAMIDE 500 MG INJ IV (09:00)
[2019-07-20] MEDS: morphine 2 MG INJ IV (10:14)
[2019-07-20] MEDS: CEFTRIAXONE 1 GM/50 ML (PMX) 50 ML IVPB (12:29)
[2019-07-20] MEDS: ALBUTEROL 0.083% (NEB) 2.5 MG/3 ML AMP HHN (17:27)
[2019-07-21] MEDS: ALBUTEROL/IPRATROPIUM (NEB) 3 ML AMP HHN ×4 (03:29→20:04)
[2019-07-21] MEDS: PANTOPRAZOLE (EC) 40 MG TAB PO ×2 (05:49→17:52)
[2019-07-21] MEDS: ACETAZOLAMIDE 500 MG INJ IV (08:56)
[2019-07-21] MEDS: METHYLPREDNISOLONE 40 MG INJ IV (08:56)
[2019-07-21] MEDS: METOPROLOL (XL) 25 MG TAB PO ×2 (08:57→21:00)
[2019-07-21] MEDS: LUBIPROSTONE 24 MCG CAP PO ×2 (08:57→21:00)
[2019-07-21] MEDS: COLLAGENASE 5 GM (UD JAR) TOP (08:58)
[2019-07-21] MEDS: POLYETHYLENE GLYCOL 17 GM PACKET PO (08:58)
[2019-07-21] MEDS: SILVER SULFADIAZINE 1% 25 GM CR TOP (09:00)
[2019-07-21] MEDS: METHADONE 10 MG TAB PO (09:02)
[2019-07-21] MEDS: NICOTINE (21 MG/24 HR) PATCH TRANSDERM (09:02)
[2019-07-21] MEDS: POTASSIUM CHLORIDE (SR) 20 MEQ TAB PO (11:52)
[2019-07-21] MEDS: CEFTRIAXONE 1 GM/50 ML (PMX) 50 ML IVPB (11:54)
[2019-07-21] MEDS: MAGNESIUM SULFATE 1 GM/D5W 100 ML IVPB (12:34)
[2019-07-22] MEDS: ALBUTEROL/IPRATROPIUM (NEB) 3 ML AMP HHN ×4 (01:44→19:32)
[2019-07-22] MEDS: PANTOPRAZOLE (EC) 40 MG TAB PO ×2 (06:56→18:54)
[2019-07-22] MEDS: METOPROLOL (XL) 25 MG TAB PO ×2 (09:00→21:08)
[2019-07-22] MEDS: METHYLPREDNISOLONE 40 MG INJ IV (09:24)
[2019-07-22] MEDS: ACETAZOLAMIDE 500 MG INJ IV (09:24)
[2019-07-22] MEDS: COLLAGENASE 5 GM (UD JAR) TOP (09:25)
[2019-07-22] MEDS: POLYETHYLENE GLYCOL 17 GM PACKET PO (09:25)
[2019-07-22] MEDS: NICOTINE (21 MG/24 HR) PATCH TRANSDERM (09:25)
[2019-07-22] MEDS: SILVER SULFADIAZINE 1% 25 GM CR TOP (09:28)
[2019-07-22] MEDS: LUBIPROSTONE 24 MCG CAP PO ×2 (09:28→21:08)
[2019-07-22] MEDS: METHADONE 10 MG TAB PO (09:33)
[2019-07-22] MEDS: CEFTRIAXONE 1 GM/50 ML (PMX) 50 ML IVPB (11:59)
[2019-07-23] MEDS: ALBUTEROL/IPRATROPIUM (NEB) 3 ML AMP HHN ×4 (01:05→20:05)
[2019-07-23] MEDS: PANTOPRAZOLE (EC) 40 MG TAB PO ×2 (05:55→18:16)
[2019-07-23] MEDS: COLLAGENASE 5 GM (UD JAR) TOP (09:49)
[2019-07-23] MEDS: METHYLPREDNISOLONE 40 MG INJ IV (09:49)
[2019-07-23] MEDS: ACETAZOLAMIDE 500 MG INJ IV (09:49)
[2019-07-23] MEDS: POLYETHYLENE GLYCOL 17 GM PACKET PO (09:49)
[2019-07-23] MEDS: LUBIPROSTONE 24 MCG CAP PO ×2 (09:49→21:33)
[2019-07-23] MEDS: METHADONE 10 MG TAB PO (09:50)
[2019-07-23] MEDS: METOPROLOL (XL) 25 MG TAB PO ×2 (09:51→21:34)
[2019-07-23] MEDS: NICOTINE (21 MG/24 HR) PATCH TRANSDERM (09:52)
[2019-07-23] MEDS: SILVER SULFADIAZINE 1% 25 GM CR TOP (09:52)
[2019-07-23] MEDS: CEFTRIAXONE 1 GM/50 ML (PMX) 50 ML IVPB (12:42)
[2019-07-23] MEDS: SOD CHLORIDE 0.9% 250 ML IV* (14:00)
[2019-07-24] MEDS: ALBUTEROL/IPRATROPIUM (NEB) 3 ML AMP HHN ×4 (01:01→19:49)
[2019-07-24] MEDS: PANTOPRAZOLE (EC) 40 MG TAB PO ×2 (06:07→18:00)
[2019-07-24] MEDS: LUBIPROSTONE 24 MCG CAP PO ×2 (09:00→21:00)
[2019-07-24] MEDS: POLYETHYLENE GLYCOL 17 GM PACKET PO (09:00)
[2019-07-24] MEDS: METHADONE 10 MG TAB PO (09:00)
[2019-07-24] MEDS: METOPROLOL (XL) 25 MG TAB PO ×2 (09:00→22:55)
[2019-07-24] MEDS: SILVER SULFADIAZINE 1% 25 GM CR TOP (09:00)
[2019-07-24] MEDS: morphine 2 MG INJ IV (11:08)
[2019-07-24] MEDS: METHYLPREDNISOLONE 40 MG INJ IV (11:10)
[2019-07-24] MEDS: NICOTINE (21 MG/24 HR) PATCH TRANSDERM (11:10)
[2019-07-24] MEDS: COLLAGENASE 5 GM (UD JAR) TOP (11:11)
[2019-07-24] MEDS: ACETAMINOPHEN 325 MG TAB PO (13:55)
[2019-07-24] MEDS: CEFTRIAXONE 1 GM/50 ML (PMX) 50 ML IVPB (13:56)
[2019-07-24] MEDS: ALBUTEROL 0.083% (NEB) 2.5 MG/3 ML AMP HHN (16:07)
[2019-07-24] MEDS: FUROSEMIDE 40 MG INJ IV ×2 (16:09→18:59)
[2019-07-24] MEDS: POTASSIUM CHLORIDE 100 ML IVPB ×2 (16:51→19:00)
[2019-07-25] MEDS: ALBUTEROL/IPRATROPIUM (NEB) 3 ML AMP HHN ×5 (01:22→20:52)
[2019-07-25] MEDS: PANTOPRAZOLE (EC) 40 MG TAB PO ×2 (05:32→17:55)
[2019-07-25] MEDS: FUROSEMIDE 40 MG INJ IV ×2 (05:33→17:56)
[2019-07-25] MEDS: METOPROLOL (XL) 25 MG TAB PO ×2 (08:40→22:02)
[2019-07-25] MEDS: LISINOPRIL 5 MG TAB PO (08:41)
[2019-07-25] MEDS: LUBIPROSTONE 24 MCG CAP PO ×2 (09:00→22:01)
[2019-07-25] MEDS: POTASSIUM CHLORIDE (SR) 20 MEQ TAB PO (09:00)
[2019-07-25] MEDS: METHADONE 10 MG TAB PO (09:01)
[2019-07-25] MEDS: POLYETHYLENE GLYCOL 17 GM PACKET PO (09:01)
[2019-07-25] MEDS: COLLAGENASE 5 GM (UD JAR) TOP (09:01)
[2019-07-25] MEDS: NICOTINE (21 MG/24 HR) PATCH TRANSDERM (09:02)
[2019-07-25] MEDS: SILVER SULFADIAZINE 1% 25 GM CR TOP (09:02)
[2019-07-25] MEDS: METHYLPREDNISOLONE 40 MG INJ IV (09:03)
[2019-07-25] MEDS: CEFTRIAXONE 1 GM/50 ML (PMX) 50 ML IVPB (12:20)
[2019-07-26] MEDS: ALBUTEROL/IPRATROPIUM (NEB) 3 ML AMP HHN ×4 (02:00→19:27)
[2019-07-26] MEDS: PANTOPRAZOLE (EC) 40 MG TAB PO ×2 (06:09→17:23)
[2019-07-26] MEDS: FUROSEMIDE 40 MG INJ IV ×2 (06:09→17:23)
[2019-07-26] MEDS: POLYETHYLENE GLYCOL 17 GM PACKET PO (08:57)
[2019-07-26] MEDS: LUBIPROSTONE 24 MCG CAP PO ×2 (08:58→21:02)
[2019-07-26] MEDS: METHADONE 10 MG TAB PO (08:59)
[2019-07-26] MEDS: LISINOPRIL 5 MG TAB PO (09:00)
[2019-07-26] MEDS: NICOTINE (21 MG/24 HR) PATCH TRANSDERM (09:02)
[2019-07-26] MEDS: METOPROLOL (XL) 25 MG TAB PO ×2 (09:02→21:02)
[2019-07-26] MEDS: SPIRONOLACTONE 25 MG TAB PO (09:02)
[2019-07-26] MEDS: SILVER SULFADIAZINE 1% 25 GM CR TOP (09:03)
[2019-07-26] MEDS: COLLAGENASE 5 GM (UD JAR) TOP (09:03)
[2019-07-26] MEDS: METHYLPREDNISOLONE 40 MG INJ IV (09:04)
[2019-07-26] MEDS: CEFTRIAXONE 1 GM/50 ML (PMX) 50 ML IVPB (11:35)
[2019-07-26] MEDS: POTASSIUM CHLORIDE 20 MEQ POWDER FOR ORAL SOLN PO (15:22)
[2019-07-26] MEDS: MAGNESIUM SULFATE 2 GM/50 ML 50 ML IVPB (15:23)
[2019-07-27] MEDS: ALBUTEROL/IPRATROPIUM (NEB) 3 ML AMP HHN ×4 (01:22→19:26)
[2019-07-27] MEDS: PANTOPRAZOLE (EC) 40 MG TAB PO ×2 (05:39→17:29)
[2019-07-27] MEDS: FUROSEMIDE 40 MG INJ IV ×2 (05:40→17:30)
[2019-07-27] MEDS: METOPROLOL (XL) 25 MG TAB PO ×2 (08:57→21:00)
[2019-07-27] MEDS: LISINOPRIL 5 MG TAB PO (08:58)
[2019-07-27] MEDS: SPIRONOLACTONE 25 MG TAB PO (08:58)
[2019-07-27] MEDS: NICOTINE (21 MG/24 HR) PATCH TRANSDERM (08:58)
[2019-07-27] MEDS: METHYLPREDNISOLONE 40 MG INJ IV (08:59)
[2019-07-27] MEDS: POLYETHYLENE GLYCOL 17 GM PACKET PO (08:59)
[2019-07-27] MEDS: METHADONE 10 MG TAB PO (08:59)
[2019-07-27] MEDS: LUBIPROSTONE 24 MCG CAP PO ×2 (08:59→21:05)
[2019-07-27] MEDS: COLLAGENASE 5 GM (UD JAR) TOP (08:59)
[2019-07-27] MEDS: SILVER SULFADIAZINE 1% 25 GM CR TOP ×2 (09:00→17:29)
[2019-07-27] MEDS: CEFTRIAXONE 1 GM/50 ML (PMX) 50 ML IVPB (12:01)
[2019-07-28] MEDS: ALBUTEROL/IPRATROPIUM (NEB) 3 ML AMP HHN ×4 (02:00→19:33)
[2019-07-28] MEDS: FUROSEMIDE 40 MG INJ IV ×2 (05:25→17:48)
[2019-07-28] MEDS: PANTOPRAZOLE (EC) 40 MG TAB PO ×2 (05:29→17:48)
[2019-07-28] MEDS: METOPROLOL (XL) 25 MG TAB PO ×2 (09:00→20:22)
[2019-07-28] MEDS: LISINOPRIL 5 MG TAB PO (09:00)
[2019-07-28] MEDS: POLYETHYLENE GLYCOL 17 GM PACKET PO (09:00)
[2019-07-28] MEDS: POTASSIUM CHLORIDE (SR) 20 MEQ TAB PO (09:13)
[2019-07-28] MEDS: LUBIPROSTONE 24 MCG CAP PO ×2 (09:14→20:22)
[2019-07-28] MEDS: SPIRONOLACTONE 25 MG TAB PO (09:14)
[2019-07-28] MEDS: METHADONE 10 MG TAB PO (09:14)
[2019-07-28] MEDS: NICOTINE (21 MG/24 HR) PATCH TRANSDERM (09:15)
[2019-07-28] MEDS: COLLAGENASE 5 GM (UD JAR) TOP (09:15)
[2019-07-28] MEDS: SILVER SULFADIAZINE 1% 25 GM CR TOP (09:22)
[2019-07-28] MEDS: METHYLPREDNISOLONE 40 MG INJ IV (09:22)
[2019-07-28] MEDS: CEFTRIAXONE 1 GM/50 ML (PMX) 50 ML IVPB (12:34)
[2019-07-29] MEDS: ALBUTEROL/IPRATROPIUM (NEB) 3 ML AMP HHN ×4 (01:34→20:00)
[2019-07-29] MEDS: PANTOPRAZOLE (EC) 40 MG TAB PO ×2 (06:00→18:02)
[2019-07-29] MEDS: FUROSEMIDE 40 MG INJ IV ×2 (06:07→18:00)
[2019-07-29] MEDS: METOPROLOL (XL) 25 MG TAB PO ×2 (09:00→21:00)
[2019-07-29] MEDS: METHYLPREDNISOLONE 40 MG INJ IV (09:00)
[2019-07-29] MEDS: LISINOPRIL 5 MG TAB PO (09:00)
[2019-07-29] MEDS: SILVER SULFADIAZINE 1% 25 GM CR TOP (09:00)
[2019-07-29] MEDS: POLYETHYLENE GLYCOL 17 GM PACKET PO (09:00)
[2019-07-29] MEDS: SPIRONOLACTONE 25 MG TAB PO (09:59)
[2019-07-29] MEDS: POTASSIUM CHLORIDE (SR) 20 MEQ TAB PO (10:01)
[2019-07-29] MEDS: NICOTINE (21 MG/24 HR) PATCH TRANSDERM (10:02)
[2019-07-29] MEDS: LUBIPROSTONE 24 MCG CAP PO ×2 (10:03→21:00)
[2019-07-29] MEDS: METHADONE 10 MG TAB PO (10:03)
[2019-07-29] MEDS: COLLAGENASE 5 GM (UD JAR) TOP (10:04)
[2019-07-29] MEDS: CEFTRIAXONE 1 GM/50 ML (PMX) 50 ML IVPB (12:00)
[2019-07-30] MEDS: ALBUTEROL/IPRATROPIUM (NEB) 3 ML AMP HHN ×4 (01:53→20:00)
[2019-07-30] MEDS: PANTOPRAZOLE (EC) 40 MG TAB PO ×2 (05:25→17:14)
[2019-07-30] MEDS: FUROSEMIDE 40 MG INJ IV (05:26)
[2019-07-30] MEDS: LISINOPRIL 5 MG TAB PO (08:37)
[2019-07-30] MEDS: POTASSIUM CHLORIDE (SR) 20 MEQ TAB PO (08:54)
[2019-07-30] MEDS: SILVER SULFADIAZINE 1% 25 GM CR TOP (08:54)
[2019-07-30] MEDS: POLYETHYLENE GLYCOL 17 GM PACKET PO (08:54)
[2019-07-30] MEDS: COLLAGENASE 5 GM (UD JAR) TOP (08:54)
[2019-07-30] MEDS: METOPROLOL (XL) 25 MG TAB PO ×2 (08:55→20:12)
[2019-07-30] MEDS: BUMETANIDE 1 MG TAB PO (08:55)
[2019-07-30] MEDS: LUBIPROSTONE 24 MCG CAP PO ×2 (08:55→20:08)
[2019-07-30] MEDS: SPIRONOLACTONE 25 MG TAB PO (08:55)
[2019-07-30] MEDS: METHYLPREDNISOLONE 40 MG INJ IV (08:56)
[2019-07-30] MEDS: NICOTINE (21 MG/24 HR) PATCH TRANSDERM (08:56)
[2019-07-30] MEDS: METHADONE 10 MG TAB PO (08:58)
[2019-07-30] MEDS: CEFTRIAXONE 1 GM/50 ML (PMX) 50 ML IVPB (11:12)
[2019-07-30] MEDS: ACETAMINOPHEN 325 MG TAB PO (20:10)
[2019-07-31] MEDS: ALBUTEROL/IPRATROPIUM (NEB) 3 ML AMP HHN ×4 (02:00→19:54)
[2019-07-31] MEDS: PANTOPRAZOLE (EC) 40 MG TAB PO ×2 (05:33→17:08)
[2019-07-31] MEDS: POTASSIUM CHLORIDE (SR) 20 MEQ TAB PO (06:59)
[2019-07-31] MEDS: METHYLPREDNISOLONE 40 MG INJ IV (08:45)
[2019-07-31] MEDS: SPIRONOLACTONE 25 MG TAB PO (08:45)
[2019-07-31] MEDS: METHADONE 10 MG TAB PO (08:46)
[2019-07-31] MEDS: COLLAGENASE 5 GM (UD JAR) TOP (08:46)
[2019-07-31] MEDS: LUBIPROSTONE 24 MCG CAP PO ×2 (08:46→21:00)
[2019-07-31] MEDS: LISINOPRIL 5 MG TAB PO (08:47)
[2019-07-31] MEDS: POLYETHYLENE GLYCOL 17 GM PACKET PO (08:47)
[2019-07-31] MEDS: METOPROLOL (XL) 25 MG TAB PO ×2 (08:47→20:13)
[2019-07-31] MEDS: BUMETANIDE 1 MG TAB PO (08:47)
[2019-07-31] MEDS: SILVER SULFADIAZINE 1% 25 GM CR TOP (08:48)
[2019-07-31] MEDS: NICOTINE (21 MG/24 HR) PATCH TRANSDERM (08:48)
[2019-07-31] MEDS: CEFTRIAXONE 1 GM/50 ML (PMX) 50 ML IVPB (11:27)
[2019-07-31] MEDS: LORAZEPAM 0.5 MG TAB PO (14:54)
[2019-07-31] MEDS: LORAZEPAM 2 MG INJ IV (15:30)
[2019-07-31] MEDS: morphine 2 MG INJ IV (20:13)
[2019-08-01] MEDS: ALBUTEROL/IPRATROPIUM (NEB) 3 ML AMP HHN ×4 (02:00→21:05)
[2019-08-01] MEDS: PANTOPRAZOLE (EC) 40 MG TAB PO ×2 (05:09→17:36)
[2019-08-01] MEDS: METHYLPREDNISOLONE 40 MG INJ IV (08:54)
[2019-08-01] MEDS: MAGNESIUM SULFATE 2 GM/50 ML 50 ML IVPB (08:54)
[2019-08-01] MEDS: POLYETHYLENE GLYCOL 17 GM PACKET PO ×2 (08:55→09:00)
[2019-08-01] MEDS: COLLAGENASE 5 GM (UD JAR) TOP (08:55)
[2019-08-01] MEDS: NICOTINE (21 MG/24 HR) PATCH TRANSDERM (08:55)
[2019-08-01] MEDS: NEUTRA-PHOS 250 MG PACKET PO ×3 (08:55→20:18)
[2019-08-01] MEDS: LUBIPROSTONE 24 MCG CAP PO ×3 (08:56→20:18)
[2019-08-01] MEDS: BUMETANIDE 1 MG TAB PO ×2 (08:56→09:00)
[2019-08-01] MEDS: SPIRONOLACTONE 25 MG TAB PO (08:56)
[2019-08-01] MEDS: METOPROLOL (XL) 25 MG TAB PO ×2 (08:57→20:18)
[2019-08-01] MEDS: LISINOPRIL 5 MG TAB PO (08:58)
[2019-08-01] MEDS: SILVER SULFADIAZINE 1% 25 GM CR TOP (09:00)
[2019-08-01] MEDS: METHADONE 10 MG TAB PO (09:34)
[2019-08-01] MEDS: morphine 2 MG INJ IV (11:55)
[2019-08-01] MEDS: CEFTRIAXONE 1 GM/50 ML (PMX) 50 ML IVPB (11:55)
[2019-08-01] MEDS: LORAZEPAM 0.5 MG TAB PO ×2 (15:07→22:58)
[2019-08-02] MEDS: ALBUTEROL/IPRATROPIUM (NEB) 3 ML AMP HHN ×4 (01:38→19:46)
[2019-08-02] MEDS: PANTOPRAZOLE (EC) 40 MG TAB PO ×2 (06:27→17:40)
[2019-08-02] MEDS: LUBIPROSTONE 24 MCG CAP PO ×2 (09:00→20:37)
[2019-08-02] MEDS: POLYETHYLENE GLYCOL 17 GM PACKET PO (09:00)
[2019-08-02] MEDS: BUMETANIDE 1 MG TAB PO (09:00)
[2019-08-02] MEDS: METHYLPREDNISOLONE 40 MG INJ IV (09:00)
[2019-08-02] MEDS: NEUTRA-PHOS 250 MG PACKET PO ×2 (10:09→20:38)
[2019-08-02] MEDS: METHADONE 10 MG TAB PO (10:11)
[2019-08-02] MEDS: ALBUTEROL 0.083% (NEB) 2.5 MG/3 ML AMP HHN (10:12)
[2019-08-02] MEDS: SPIRONOLACTONE 25 MG TAB PO (10:12)
[2019-08-02] MEDS: LISINOPRIL 5 MG TAB PO (10:15)
[2019-08-02] MEDS: METOPROLOL (XL) 25 MG TAB PO ×2 (10:16→20:38)
[2019-08-02] MEDS: NICOTINE (21 MG/24 HR) PATCH TRANSDERM (10:18)
[2019-08-02] MEDS: CEFTRIAXONE 1 GM/50 ML (PMX) 50 ML IVPB (12:00)
[2019-08-02] MEDS: COLLAGENASE 5 GM (UD JAR) TOP (14:40)
[2019-08-02] MEDS: SILVER SULFADIAZINE 1% 25 GM CR TOP (14:40)
[2019-08-02] MEDS: CEFTRIAXONE 1 GM INJ IM (18:28)
[2019-08-03] MEDS: ALBUTEROL/IPRATROPIUM (NEB) 3 ML AMP HHN ×4 (00:56→20:12)
[2019-08-03] MEDS: PANTOPRAZOLE (EC) 40 MG TAB PO ×2 (06:00→17:54)
[2019-08-03] MEDS: LUBIPROSTONE 24 MCG CAP PO ×2 (08:32→21:00)
[2019-08-03] MEDS: SILVER SULFADIAZINE 1% 25 GM CR TOP (08:32)
[2019-08-03] MEDS: BUMETANIDE 1 MG TAB PO (08:32)
[2019-08-03] MEDS: NICOTINE (21 MG/24 HR) PATCH TRANSDERM (08:33)
[2019-08-03] MEDS: METHADONE 10 MG TAB PO (08:33)
[2019-08-03] MEDS: SPIRONOLACTONE 25 MG TAB PO (08:33)
[2019-08-03] MEDS: NEUTRA-PHOS 250 MG PACKET PO ×2 (08:33→21:00)
[2019-08-03] MEDS: predniSONE 20 MG TAB PO (08:33)
[2019-08-03] MEDS: METOPROLOL (XL) 25 MG TAB PO ×2 (08:34→21:22)
[2019-08-03] MEDS: LISINOPRIL 5 MG TAB PO (08:34)
[2019-08-03] MEDS: POLYETHYLENE GLYCOL 17 GM PACKET PO (08:34)
[2019-08-03] MEDS: COLLAGENASE 5 GM (UD JAR) TOP (08:36)
[2019-08-03] MEDS: CEFTRIAXONE 1 GM INJ IM (23:01)
[2019-08-04] MEDS: ALBUTEROL/IPRATROPIUM (NEB) 3 ML AMP HHN ×4 (01:26→20:31)
[2019-08-04] MEDS: PANTOPRAZOLE (EC) 40 MG TAB PO ×2 (05:41→18:01)
[2019-08-04] MEDS: METHADONE 10 MG TAB PO (08:30)
[2019-08-04] MEDS: NICOTINE (21 MG/24 HR) PATCH TRANSDERM (08:32)
[2019-08-04] MEDS: predniSONE 20 MG TAB PO (08:32)
[2019-08-04] MEDS: SPIRONOLACTONE 25 MG TAB PO (08:32)
[2019-08-04] MEDS: LUBIPROSTONE 24 MCG CAP PO ×2 (08:33→20:44)
[2019-08-04] MEDS: BUMETANIDE 1 MG TAB PO (08:33)
[2019-08-04] MEDS: METOPROLOL (XL) 25 MG TAB PO ×2 (08:34→20:44)
[2019-08-04] MEDS: LISINOPRIL 5 MG TAB PO (08:34)
[2019-08-04] MEDS: COLLAGENASE 5 GM (UD JAR) TOP (08:35)
[2019-08-04] MEDS: SILVER SULFADIAZINE 1% 25 GM CR TOP (08:35)
[2019-08-04] MEDS: POLYETHYLENE GLYCOL 17 GM PACKET PO ×2 (08:35→09:00)
[2019-08-04] MEDS: NEUTRA-PHOS 250 MG PACKET PO ×2 (09:00→20:44)
[2019-08-04] MEDS: CEFTRIAXONE 1 GM INJ IM (18:02)
[2019-08-05] MEDS: ALBUTEROL/IPRATROPIUM (NEB) 3 ML AMP HHN ×4 (01:53→20:12)
[2019-08-05] MEDS: PANTOPRAZOLE (EC) 40 MG TAB PO ×2 (05:42→18:32)
[2019-08-05] MEDS: COLLAGENASE 5 GM (UD JAR) TOP ×2 (09:00→13:55)
[2019-08-05] MEDS: METOPROLOL (XL) 25 MG TAB PO ×2 (09:00→20:42)
[2019-08-05] MEDS: LISINOPRIL 5 MG TAB PO (09:00)
[2019-08-05] MEDS: SILVER SULFADIAZINE 1% 25 GM CR TOP ×2 (09:00→13:55)
[2019-08-05] MEDS: LUBIPROSTONE 24 MCG CAP PO ×2 (09:26→20:46)
[2019-08-05] MEDS: BUMETANIDE 1 MG TAB PO (09:27)
[2019-08-05] MEDS: predniSONE 20 MG TAB PO (09:27)
[2019-08-05] MEDS: NICOTINE (21 MG/24 HR) PATCH TRANSDERM (09:27)
[2019-08-05] MEDS: METHADONE 10 MG TAB PO (09:27)
[2019-08-05] MEDS: NEUTRA-PHOS 250 MG PACKET PO ×2 (09:27→20:42)
[2019-08-05] MEDS: SPIRONOLACTONE 25 MG TAB PO (09:27)
[2019-08-05] MEDS: CEFTRIAXONE 1 GM INJ IM (17:30)
[2019-08-05] MEDS: LORAZEPAM 0.5 MG TAB PO (23:33)
[2019-08-06] MEDS: ALBUTEROL/IPRATROPIUM (NEB) 3 ML AMP HHN ×5 (02:15→19:41)
[2019-08-06] MEDS: PANTOPRAZOLE (EC) 40 MG TAB PO ×2 (06:00→17:11)
[2019-08-06] MEDS: NICOTINE (21 MG/24 HR) PATCH TRANSDERM (10:12)
[2019-08-06] MEDS: POLYETHYLENE GLYCOL 17 GM PACKET PO (10:15)
[2019-08-06] MEDS: METOPROLOL (XL) 25 MG TAB PO ×2 (10:15→21:00)
[2019-08-06] MEDS: LISINOPRIL 5 MG TAB PO (10:15)
[2019-08-06] MEDS: METHADONE 10 MG TAB PO (10:15)
[2019-08-06] MEDS: COLLAGENASE 5 GM (UD JAR) TOP ×2 (10:22→16:01)
[2019-08-06] MEDS: NEUTRA-PHOS 250 MG PACKET PO ×2 (10:22→21:00)
[2019-08-06] MEDS: predniSONE 20 MG TAB PO (10:22)
[2019-08-06] MEDS: SPIRONOLACTONE 25 MG TAB PO (10:22)
[2019-08-06] MEDS: LUBIPROSTONE 24 MCG CAP PO ×2 (10:22→21:00)
[2019-08-06] MEDS: BUMETANIDE 1 MG TAB PO (10:23)
[2019-08-06] MEDS: SILVER SULFADIAZINE 1% 25 GM CR TOP ×2 (10:23→16:01)
[2019-08-07] MEDS: ALBUTEROL/IPRATROPIUM (NEB) 3 ML AMP HHN ×4 (01:10→19:28)
[2019-08-07] MEDS: SILVER SULFADIAZINE 1% 25 GM CR TOP ×2 (02:48→09:00)
[2019-08-07] MEDS: COLLAGENASE 5 GM (UD JAR) TOP ×2 (02:48→09:00)
[2019-08-07] MEDS: PANTOPRAZOLE (EC) 40 MG TAB PO ×2 (06:00→17:31)
[2019-08-07] MEDS: LUBIPROSTONE 24 MCG CAP PO ×2 (09:00→20:26)
[2019-08-07] MEDS: SPIRONOLACTONE 25 MG TAB PO (09:00)
[2019-08-07] MEDS: POLYETHYLENE GLYCOL 17 GM PACKET PO (09:00)
[2019-08-07] MEDS: METHADONE 10 MG TAB PO (09:02)
[2019-08-07] MEDS: BUMETANIDE 1 MG TAB PO (09:02)
[2019-08-07] MEDS: METOPROLOL (XL) 25 MG TAB PO ×2 (09:04→20:28)
[2019-08-07] MEDS: LISINOPRIL 5 MG TAB PO (09:04)
[2019-08-07] MEDS: NEUTRA-PHOS 250 MG PACKET PO ×2 (09:05→20:28)
[2019-08-07] MEDS: predniSONE 20 MG TAB PO (09:05)
[2019-08-07] MEDS: NICOTINE (21 MG/24 HR) PATCH TRANSDERM (09:06)
[2019-08-08] MEDS: ALBUTEROL/IPRATROPIUM (NEB) 3 ML AMP HHN (01:24)
[2019-08-08] MEDS: PANTOPRAZOLE (EC) 40 MG TAB PO ×2 (08:30→18:00)
[2019-08-08] MEDS: SPIRONOLACTONE 25 MG TAB PO (09:00)
[2019-08-08] MEDS: METOPROLOL (XL) 25 MG TAB PO ×2 (09:00→20:51)
[2019-08-08] MEDS: LISINOPRIL 5 MG TAB PO (09:00)
[2019-08-08] MEDS: POLYETHYLENE GLYCOL 17 GM PACKET PO (09:00)
[2019-08-08] MEDS: predniSONE 20 MG TAB PO (09:53)
[2019-08-08] MEDS: METHADONE 10 MG TAB PO (09:53)
[2019-08-08] MEDS: BUMETANIDE 1 MG TAB PO (09:55)
[2019-08-08] MEDS: LUBIPROSTONE 24 MCG CAP PO ×2 (09:56→20:51)
[2019-08-08] MEDS: SILVER SULFADIAZINE 1% 25 GM CR TOP (09:57)
[2019-08-08] MEDS: COLLAGENASE 5 GM (UD JAR) TOP (09:57)
[2019-08-08] MEDS: NEUTRA-PHOS 250 MG PACKET PO ×2 (09:57→20:51)
[2019-08-08] MEDS: NICOTINE (21 MG/24 HR) PATCH TRANSDERM (10:03)
[2019-08-09] MEDS: PANTOPRAZOLE (EC) 40 MG TAB PO (05:41)
[2019-08-09] MEDS: METOPROLOL (XL) 25 MG TAB PO (09:00)
[2019-08-09] MEDS: LISINOPRIL 5 MG TAB PO (09:00)
[2019-08-09] MEDS: POLYETHYLENE GLYCOL 17 GM PACKET PO (09:00)
[2019-08-09] MEDS: LUBIPROSTONE 24 MCG CAP PO (09:00)
[2019-08-09] MEDS: SPIRONOLACTONE 25 MG TAB PO (09:19)
[2019-08-09] MEDS: predniSONE 20 MG TAB PO (09:19)
[2019-08-09] MEDS: METHADONE 10 MG TAB PO (09:20)
[2019-08-09] MEDS: COLLAGENASE 5 GM (UD JAR) TOP (09:20)
[2019-08-09] MEDS: BUMETANIDE 1 MG TAB PO (09:20)
[2019-08-09] MEDS: NICOTINE (21 MG/24 HR) PATCH TRANSDERM (09:21)
[2019-08-09] MEDS: NEUTRA-PHOS 250 MG PACKET PO (09:21)
[2019-08-09] MEDS: SILVER SULFADIAZINE 1% 25 GM CR TOP (09:22)
== END 2019-08-09 15:04 | DRG 193 ==
LOC: ICU 07-07 04:27 → 6WM 07-11 06:00 → PP2 07-27 02:15 → E/R 15:38 → MS3 06-26 22:05 → 6WM 06-27 18:23 → TEL 20:55
PROC: 0DB68ZX Excision of Stomach, Via Natural or Artificial Opening Endoscopic, Diagnostic (ICD-10-PCS; 2019-06-28 12:30)
PROC: 05H333Z Insertion of Infusion Device into Right Innominate Vein, Percutaneous Approach (ICD-10-PCS; principal; 2019-06-28 12:45)
PROC: 30233N1 Transfusion of Nonautologous Red Blood Cells into Peripheral Vein, Percutaneous Approach (ICD-10-PCS; 2019-06-28 12:45)
PROC: 30233M1 Transfusion of Nonautologous Plasma Cryoprecipitate into Peripheral Vein, Percutaneous Approach (ICD-10-PCS; 2019-06-28 12:45)
PROC: 06HY33Z Insertion of Infusion Device into Lower Vein, Percutaneous Approach (ICD-10-PCS; 2019-06-28 12:45)
PROC: 5A09557 Assistance with Respiratory Ventilation, Greater than 96 Consecutive Hours, Continuous Positive Airway Pressure (ICD-10-PCS; 2019-06-28 12:45)
PROC: 0W993ZZ Drainage of Right Pleural Cavity, Percutaneous Approach (ICD-10-PCS; 2019-06-28 12:45)
PROC: 30233R1 Transfusion of Nonautologous Platelets into Peripheral Vein, Percutaneous Approach (ICD-10-PCS; 2019-06-28 12:45)
DX: J18.1 Lobar pneumonia, unspecified organism (principal); I33.0 Acute and subacute infective endocarditis; I50.23 Acute on chronic systolic (congestive) heart failure; N17.0 Acute kidney failure with tubular necrosis; G92 Toxic encephalopathy; A41.9 Sepsis, unspecified organism; J96.01 Acute respiratory failure with hypoxia; J90 Pleural effusion, not elsewhere classified; J45.901 Unspecified asthma with (acute) exacerbation; I42.9 Cardiomyopathy, unspecified; T82.524A Displacement of infusion catheter, initial encounter; I82.C11 Acute embolism and thrombosis of right internal jugular vein; D68.4 Acquired coagulation factor deficiency; E87.2 Acidosis; D61.818 Other pancytopenia; J44.0 Chronic obstructive pulmonary disease with (acute) lower respiratory infection; N04.9 Nephrotic syndrome with unspecified morphologic changes; E87.3 Alkalosis; B96.89 Other specified bacterial agents as the cause of diseases classified elsewhere; B19.20 Unspecified viral hepatitis C without hepatic coma; D64.9 Anemia, unspecified; D69.59 Other secondary thrombocytopenia; E16.2 Hypoglycemia, unspecified; E87.6 Hypokalemia; E03.9 Hypothyroidism, unspecified; F17.210 Nicotine dependence, cigarettes, uncomplicated; K29.00 Acute gastritis without bleeding; K74.69 Other cirrhosis of liver; R94.5 Abnormal results of liver function studies; R60.1 Generalized edema; Z91.19 Patient's noncompliance with other medical treatment and regimen
CPT/HCPCS: 36415; 36430; 36556; 36600; 70450; 70551; 71045; 74181; 76705; 76775; 76942; 80048; 80053; 80069; 80076; 80170; 80202; 80307; 81001; 81003; 82043; 82140; 82270; 82378; 82607; 82728; 82746; 82803; 82945; 82962; 83036; 83540; 83605; 83615; 83735; 83880; 84100; 84155; 84157; 84300; 84443; 84484; 84703; 85014; 85018; 85025; 85045; 85384; 85610; 85730; 86703; 86704; 86803; 86850; 86900; 86901; 86920; 87040-91; 87070; 87086; 87102; 87116; 87340; 87522; 88104; 88305; 88312; 88341; 88342; 89051; 93005; 93306; 93971; 94640; 94660; 94664; 95819; 96365; 97110; 97116; 97162; 97530; 99285-25